=== PATIENT | male | born 1995 | race Caucasian/White ===

== ENCOUNTER 2023-01-08 18:46 | Emergency (ER) | payer OTHER ==
[2023-01-08 19:01] VITALS: BP 143/87; PULSE 78; RESP 18; TEMP 98.5; BMI 27.6
[2023-01-08] MEDS ORDERED: CLINDAMYCIN HCL 150 MG CAPSULE (FP) PO ONE (21:53)
[2023-01-08] MEDS ORDERED: IBUPROFEN 600 MG TABLET (FP) PO ONE ×2 (21:54→21:55)
[2023-01-08] MEDS ORDERED: CLINDAMYCIN HCL 150 MG CAPSULE (FP) ONE (21:55)
== END 2023-01-08 22:00 | disposition home or self-care (01) ==
LOC: JER 18:46 → JERFT 18:46
DX: H60.502 Unspecified acute noninfective otitis externa, left ear (principal); H92.02 Otalgia, left ear
CPT/HCPCS: 99283-25

== ENCOUNTER 2023-01-09 15:06 | Emergency (ER) | payer OTHER ==
[2023-01-09 15:27] VITALS: BP 119/70; PULSE 70; RESP 18; TEMP 98.7; BMI 28.8
[2023-01-09] MEDS ORDERED: KETOROLAC TROMETHAMINE 30 MG/1 ML VIAL IM ONE (17:12)
[2023-01-09] MEDS ORDERED: KETOROLAC TROMETHAMINE 60 MG/2 ML VIAL ONE (17:39)
== END 2023-01-09 17:57 | disposition home or self-care (01) ==
LOC: JER 15:06
DX: G51.0 Bell's palsy (principal); H92.02 Otalgia, left ear; R20.2 Paresthesia of skin; H57.89 Other specified disorders of eye and adnexa
CPT/HCPCS: 70450-TC; 99284-25